=== PATIENT | male | born 1960 | race African-American/Black ===

== ENCOUNTER 2020-10-01 20:43 | Emergency (ER) | payer SELFPAY ==
[~2020-10-01] VITALS: Ht 177.8 cm; Wt 92.0 kg
[2020-10-02] MEDS ORDERED: VISCOUS LIDOCAINE 2% 15 ML UDC PO STA (00:22)
[2020-10-02] MEDS ORDERED: MAGNESIUM/ALUMINUM HYDROXIDE/SIMETHICONE 30ML UDC PO STA (00:22)
[2020-10-02] MEDS ORDERED: ONDANSETRON HCL 4MG/2ML INJ IV STA (00:22)
[2020-10-02] MEDS ORDERED: PANTOPRAZOLE SODIUM 40 MG/VIAL IV STA (00:22)
[2020-10-02 00:42] LABS: BASOPHILS % 0.4 % (0.0-2.0); EOSINOPHILS % 0.1 % (0.0-5.0); HEMATOCRIT. 40.1 % (42.0-52.0); HEMOGLOBIN. 12.7 g/dL (14.0-18.0); LYMPHOCYTES % 17.7 % (20.0-50.0); MEAN CORPUSCULAR HEMOGLOBIN 23.1 pg (28.0-32.0); MEAN CORPUSCULAR VOLUME 72.9 fL (80.0-94.0); MEAN PLATELET VOLUME 7.5 fl (7.4-10.4); MONOCYTES % 10.4 % (2.0-8.0); NEUTROPHILS % 71.4 % (40.0-76.0); PLATELET 320 x1000/uL (130-400)
[2020-10-02 00:44] LABS: CHLORIDE 101 mEq/L (98-107)
[2020-10-02 00:48] LABS: ETHANOL BLOOD < 10 mg/dL
[2020-10-02 00:49] LABS: CLARITY URINE CLOUDY (CLEAR); COLOR URINE YELLOW (YELLOW); KETONES URINE 2+ (NEGATIVE); LEUKOCYTE ESTERASE URINE NEGATIVE (NEGATIVE); NITRITE URINE NEGATIVE (NEGATIVE); OCCULT BLOOD URINE 3+ (NEGATIVE); PH URINE 5.5 (4.5-8.0); PROTEIN URINE TRACE (NEGATIVE); SPECIFIC GRAVITY URINE 1.025 (1.005-1.030)
[2020-10-02 02:00] VITALS: BP 130/68
[2020-10-02] MEDS ORDERED: PROT20 MT (02:05)
== END 2020-10-02 02:24 | disposition home or self-care (01) ==
LOC: ER 20:43
DX: K25.9 Gastric ulcer, unspecified as acute or chronic, without hemorrhage or perforation (principal); Z98.890 Other specified postprocedural states
CPT/HCPCS: 36415; 71045; 80053; 80320; 81003; 83690; 85025; 96365; 96375; 99284; C9113; J2405; G0480